=== PATIENT | male | born 1960 | race Caucasian/White ===

== ENCOUNTER 2022-06-03 10:15 | Observation (INO) | payer BC ==
[2022-06-03] MEDS ORDERED: Sodium Chloride 0.9% 500 ML 500 ML IV ONE ×2 (10:39→10:47)
[2022-06-03] MEDS ORDERED: MORPHINE SULFATE 4 MG INJ ONE (10:39)
[2022-06-03] MEDS ORDERED: Zofran 4 MG/2 ML VIAL ONE (10:39)
[2022-06-03] MEDS ORDERED: MORPHINE SULFATE 4 MG INJ IV ONE (10:45)
[2022-06-03] MEDS ORDERED: Zofran 4 MG/2 ML VIAL IV ONE (10:47)
[2022-06-03] MEDS ORDERED: Hydromorphone 1 mg/ml Injection IV ONE (12:12)
[2022-06-03] MEDS ORDERED: Sodium Chloride 0.9% 1000 ML 1,000 ML IV SCH (12:15)
[2022-06-03] MEDS ORDERED: Hydromorphone 1 mg/ml Injection ONE (12:36)
[2022-06-03] MEDS ORDERED: Sodium Chloride 0.9% 1000 ML 1,000 ML ONE (12:36)
[2022-06-03 12:49] LABS: ALBUMIN 4.7 g/dL (3.5-5.0); ALKALINE PHOSPHATASE 94 U/L (38-126); ANION GAP 10.7 MEQ/L (5-15); BLOOD UREA NITROGEN 22 mg/dL (9-20); CHLORIDE 105 mmol/L (98-107); Calcium 9.3 mg/dL (8.4-10.2); Carbon Dioxide 24 mmol/L (22-30); Creatinine 1 0.79 mg/dL (0.66-1.25); EST GLOMERULAR FILTRATION RATE > 60.0 ML/MIN; Glucose 96 mg/dL (74-106); SGOT/AST 43 U/L (17-59); SGPT/ALT 66 U/L (0-50); SODIUM 136 mmol/L (137-145); Total Protein 7.6 g/dL (6.3-8.2)
--- NOTE | 2022-06-03 13:29 | ERPHSYRPT ---
- History of Present Illness Time Seen by Provider: 06/03/22 10:31 Historian: patient, family Exam Limitations: no limitations Patient Subjective Stated Complaint: Pt c/o of upper abdominal pain Triage Nursing Assessment: Pt brought to the ER by his , bradycardic, hypertensive, rates abdominal pain as 01/04, hx of pancreatitis, pt went to [facility] this morning and had blood work done and was told that he had pancreatitis and was told to come over to the ER, they did give him a GI cocktail while he was there, pt used to be a heavy drinker but he has cut done but has not quit, skin n/w/d, pulses normal, denies N&V at this time but just has pain Physician History: 61 years old with history of hypertension, hyperlipidemia, regular alcohol use presented to the ER with chief complaint of upper abdominal pain since yesterday. Patient is sent in from [facility] with elevated lipase and amylase. Patient reports moderate to severe sharp pain in the upper abdomen across with some radiation to the back with associated nausea but no vomiting. No significant aggravating or relieving factors for pain. Does have history of pancreatitis in the past. Timing/Duration: yesterday, gradual onset, worse Activities at Onset: rest Quality: sharpness Abdominal Pain Onset Location: RUQ, LUQ, epigastric Severity of Pain-Max: severe Severity of Pain-Current: moderate Modifying Factors: Improves With: nothing Associated Symptoms: nausea Previous symptoms: same symptoms as today Allergies/Adverse Reactions: No Known Drug Allergies Allergy (Verified 06/03/22 10:31) Home Medications: Aspirin 1 tab PO DAILY 02/05/14 [History] Cetirizine HCl [Zyrtec] 5 mg PO DAILY 02/05/14 [History] Fenofibrate,Micronized 145 mg* [Tricor 145 MG] 1 tab PO DAILY 02/05/14 [History] Sertraline HCl 50 mg [Zoloft 50 mg Tablet] 50 mg PO DAILY 02/05/14 [History] guaiFENesin [Mucinex] 600 mg PO DAILY 02/05/14 [History] Celecoxib 100 mg [celeBREX 100 MG] 200 mg PO DAILY 06/03/22 [History] Fluticasone Propionate [Flonase NASAL] 2 spray NS DAILY 06/03/22 [History] Hx Tetanus, Diphtheria Vaccination/Date Given: No (UNKNOWN) Hx Influenza Vaccination/Date Given: Yes (2012) Hx Pneumococcal Vaccination/Date Given: No Travel Risk - International Travel Have you traveled outside of the country in past 3 weeks: No - Coronavirus Screening Are you exhibiting any of the following symptoms?: No Close contact with a COVID-19 positive Pt in past 14-21 Days: No - Vaccine Status Have you recieved a Covid-19 vaccination: Yes [employer]: Belly - Vaccination Dates Date of 2cond Vaccination (if applicable): 2020 - Review of Systems Constitutional: No Symptoms Eyes: No Symptoms Ears, Nose, & Throat: No Symptoms Respiratory: No Symptoms Cardiac: No Symptoms Abdominal/Gastrointestinal: Abdominal Pain, Nausea Genitourinary Symptoms: No Symptoms Musculoskeletal: No Symptoms Skin: No Symptoms Neurological: No Symptoms Psychological: No Symptoms Endocrine: No Symptoms Hematologic/Lymphatic: No Symptoms Immunological/Allergic: No Symptoms - Past Medical History Pertinent Past Medical History: Yes Neurological History: No Pertinent History ENT History: No Pertinent History Cardiac History: High Cholesterol Respiratory History: No Pertinent History Endocrine Medical History: No Pertinent History Musculoskeletal History: Arthritis GI Medical History: Pancreatitis History: No Pertinent History Psycho-Social History: Depression Male Reproductive Disorders: No Pertinent History Other Medical History: INCREASED TRYGLYCERIDES. NO FLARE UP ON PANCREATITIS IN 6 YRS - Past Surgical History Past Surgical History: No Neuro Surgical History: No Pertinent History Cardiac: No Pertinent History Respiratory: No Pertinent History Gastrointestinal: No Pertinent History Genitourinary: No Pertinent History Musculoskeletal: No Pertinent History Male Surgical History: No Pertinent History - Social History Smoking Status: Current every day smoker How long have you smoked: 20 Exposure to second hand smoke: Yes Drug Use: none Patient Lives Alone: No - Nursing Vital Signs Nursing Vital Signs: Initial Vital Signs Temperature 97.4 F 06/03/22 10:20 Pulse Rate 53 L 06/03/22 10:20 Blood Pressure 144/72 06/03/22 10:20 O2 Sat by Pulse Oximetry 95 06/03/22 10:20 Pain Scale Pain Intensity 3 - Physical Exam General Appearance: no apparent distress, alert Eye Exam: PERRL/EOMI, eyes nml inspection Ears, Nose, Throat Exam: normal ENT inspection, TMs normal, pharynx normal Neck Exam: normal inspection, non-tender, supple, full range of motion Respiratory Exam: normal breath sounds, lungs clear Cardiovascular Exam: normal heart sounds, bradycardia Back Exam: normal inspection, normal range of motion Extremity Exam: normal inspection, normal range of motion Neurologic Exam: alert, oriented x 3, cooperative Skin Exam: normal color SpO2 Interpretation: normal SpO2: 91 O2 Delivery: Room Air Ordered Tests: Active Orders 24 hr Category Date Time Status ABDOMEN AND PELVIS W/0 CONTRAS [CT] Stat Exams 06/03/22 10:43 Taken CMP Stat Lab 06/03/22 12:37 Completed TROPONIN Q4H Lab 06/03/22 12:37 Completed TROPONIN Q4H Lab 06/03/22 16:15 Ordered TROPONIN Q4H Lab 06/03/22 20:15 Ordered UA W/RFX UR CULTURE Stat Lab 06/03/22 12:13 Ordered Medication Summary Generic Name Dose Route Start Last Admin Trade Name Freq PRN Reason Stop Dose Admin Sodium Chloride 1,000 mls @ 125 mls/hr 06/03/22 12:15 06/03/22 12:38 Sodium Chloride 0.9% 1000 Ml IV 07/03/22 12:14 125 mls/hr .Q8H BALTAZAR Administration Discontinued Medications Generic Name Dose Route Start Last Admin Trade Name Freq PRN Reason Stop Dose Admin Hydromorphone HCl 1 mg 06/03/22 12:12 06/03/22 12:40 Hydromorphone 1 Mg/1ml Inj 1 Mg/Ml Syringe IV 06/03/22 12:13 1 mg STAT ONE Administration Hydromorphone HCl Confirm 06/03/22 12:36 Hydromorphone 1 Mg/1ml Inj 1 Mg/Ml Syringe Administered 06/03/22 12:37 Dose 1 mg .ROUTE .STK-MED ONE Sodium Chloride Confirm 06/03/22 10:39 Sodium Chloride 0.9% 500 Ml Administered 06/03/22 10:40 Dose 500 mls @ ud IV .STK-MED ONE Sodium Chloride 500 mls @ 500 mls/hr 06/03/22 10:47 06/03/22 12:24 Sodium Chloride 0.9% 500 Ml IV 06/03/22 11:46 Infused .Q1H ONE Infusion Morphine Sulfate Confirm 06/03/22 10:39 Morphine Sulfate 4 Mg/Ml Injection Administered 06/03/22 10:40 Dose 4 mg .ROUTE .STK-MED ONE Morphine Sulfate 4 mg 06/03/22 10:45 06/03/22 12:25 Morphine Sulfate 4 Mg/Ml Injection IV 06/03/22 10:46 4 mg STAT ONE Administration Ondansetron HCl Confirm 06/03/22 10:39 Ondansetron Hcl 4 Mg/2 Ml Vial Administered 06/03/22 10:40 Dose 4 mg .ROUTE .STK-MED ONE Ondansetron HCl 4 mg 06/03/22 10:47 06/03/22 10:49 Ondansetron Hcl 4 Mg/2 Ml Vial IV 06/03/22 10:48 4 mg STAT ONE Administration Lab/Rad Data: Laboratory Result Diagrams 06/03/22 12:37 Laboratory Results 06/03/22 06/03/22 Range/Units 12:37 12:37 Sodium 136 L (137-145) mmol/L Potassium 4.0 (3.5-5.1) mmol/L Chloride 105 (98-107) mmol/L Carbon Dioxide 24 (22-30) mmol/L Anion Gap 10.7 (5-15) MEQ/L BUN 22 H (9-20) mg/dL Creatinine 0.79 (0.66-1.25) mg/dL Estimated GFR > 60.0 ML/MIN Glucose 96 (74-106) mg/dL Calcium 9.3 (8.4-10.2) mg/dL Total Bilirubin 0.70 (0.2-1.3) mg/dL AST 43 (17-59) U/L ALT 66 H (0-50) U/L Alkaline Phosphatase 94 (38-126) U/L Troponin I < 0.012 (0.000-0.034) ng/mL Serum Total Protein 7.6 (6.3-8.2) g/dL Albumin 4.7 (3.5-5.0) g/dL - Progress Progress: improved, pain not gone completely, re-examined Progress Note: 06/03/22 13:31 60 years old is evaluated for upper abdominal pain since yesterday with associated nausea. Pain is moderate to severe sharp with some radiation to the back. History of pancreatitis long time ago. Patient was a heavy drinker previously and no drinks off and on but not heavy. Patient is pretty tender on exam in the upper abdomen, given symptomatic treatment with morphine and Dilaudid, on reevaluation feeling better. Patient has work-up done at urgent care with white count of 11, lipase in 800s, normal liver enzymes. Has negative troponins. No chest pain palpitations or shortness of breath. CT abdomen pelvis showed mild acute pancreatitis without any necrosis or any other acute intra-abdominal/pelvic findings. I have discussed with patient about conservative management of pancreatitis with bowel rest, fluids and pain medication in the hospital versus going home on oral pain medication and clear liquid and he does not feel comfortable going home. Discussed with Dr. Espinosa and patient is admitted. Discussed with : Teo Will see patient in: hospital (observation) Counseled pt/family regarding: lab results, diagnosis, need for follow-up, rad results - Departure Departure Disposition: Observation Clinical Impression: Acute pancreatitis Condition: Stable Critical Care Time: No Referrals: LATOYA PARKS MD [Primary Care Provider] - Follow up/PCP as directed
[2022-06-03 13:39] LABS: INFLUENZA A NEGATIVE (NEGATIVE); INFLUENZA B NEGATIVE (NEGATIVE); RESPIRATORY SYNCTIAL VIRUS NEGATIVE (Negative); SARS-CoV-2 Xpert Express NEGATIVE (NEGATIVE)
[2022-06-03] MEDS ORDERED: DUONEB 0.5-3 MG/3 ml Neb IH PRN (15:17)
[2022-06-03] MEDS: Hydromorphone 1 mg/ml Injection IV PRN ×2 (16:29→20:45)
[2022-06-03 16:45] LABS: Appearance Clear (Clear); Bacteria None Seen /HPF (None Seen); Bilirubin Negative (Negative); Blood Negative (Negative); Epithelial Cells None Seen /HPF (None Seen); Glucose Negative (Negative); Hyaline Casts 0-2 /LPF (0-2); Ketones Negative (Negative); Leukocyte Esterase Negative (Negative); Nitrite Negative (Negative); Protein,Urine Dip Negative (Negative); RBC 0-2 /HPF (0-5); WBC 0-2 /HPF (0-5)
[2022-06-03 16:49] LABS: ADD URINE CULTURE? NO (NO)
--- NOTE | 2022-06-03 18:01 | XRAY ---
Indication: Abdomen pain. Elevated amylase/lipase. Pancreatitis. Multiple contiguous axial images obtained through the abdomen and pelvis without contrast. Comparison: None Lung bases demonstrates mild bibasilar subsegmental atelectasis/scarring. No infiltrate or effusion. Heart not enlarged. Noncontrasted stomach and bowel loops appear nonobstructed with normal appendix. Small descending duodenal diverticulum. Mild sigmoid diverticulosis without diverticulitis. Head of pancreas demonstrates mild edema with peripancreatic stranding favoring acute pancreatitis with tiny free fluid. No walled off fluid collection or free air. Diffuse fatty liver. Remaining liver, gallbladder, spleen, adrenal glands, kidneys, ureters, and bladder appear unremarkable for noncontrast exam. Minimal aortoiliac calcifications without AAA. Osseous structures intact with mild degenerative changes throughout the spine. Impression: 1. CT findings favor mild pancreatitis. 2. Incidental duodenal diverticulum, sigmoid diverticulosis, fatty liver, arteriosclerotic disease, and degenerative spondylosis. Comment: Preliminary interpretation made by [facility]. No critical discrepancy.
[2022-06-03] MEDS: Mucinex 600MG ER Tabs PO SCH (20:45)
[2022-06-03] MEDS: Flonase NASAL NS SCH (20:45)
[2022-06-03] MEDS: Sodium Chloride 0.9% 1000 ML 1,000 ML IV SCH (20:46)
[2022-06-04] MEDS: Hydromorphone 1 mg/ml Injection IV PRN ×3 (00:46→09:44)
[2022-06-04] MEDS: Sodium Chloride 0.9% 1000 ML 1,000 ML IV SCH ×4 (04:48→21:16)
[2022-06-04 06:27] LABS: Hemoglobin 14.2 g/dL (12.5-18.0); Mean Cell Volume 89.2 fL (78-100); Mean Corpuscular Hemoglobin 29.5 pg (26-32); Mean Platelet Volume 9.9 fL (7.5-11.0); Platelet Count 320 x10^3/uL (150-450); Red Blood Count 4.82 x10^6/uL (4.1-5.6); Red Cell Distribution Width 13.2 % (11.5-14.0); White Blood Count 12.6 x10^3/uL (4.0-10.5)
[2022-06-04 06:57] LABS: ALBUMIN 3.8 g/dL (3.5-5.0); ALKALINE PHOSPHATASE 70 U/L (38-126); ANION GAP 9.5 MEQ/L (5-15); BLOOD UREA NITROGEN 16 mg/dL (9-20); CHLORIDE 105 mmol/L (98-107); Calcium 8.3 mg/dL (8.4-10.2); Carbon Dioxide 25 mmol/L (22-30); Creatinine 1 0.75 mg/dL (0.66-1.25); EST GLOMERULAR FILTRATION RATE > 60.0 ML/MIN; Glucose 95 mg/dL (74-106); LIPASE 134 U/L (23-300); Potassium 3.7 mmol/L (3.5-5.1); SGOT/AST 33 U/L (17-59); SGPT/ALT 49 U/L (0-50); SODIUM 135 mmol/L (137-145); Total Protein 6.4 g/dL (6.3-8.2)
[2022-06-04] MEDS: PROTONIX 40 MG IV IV SCH (09:44)
[2022-06-04] MEDS ORDERED: Tricor 145 MG PO SCH (11:00)
[2022-06-04] MEDS ORDERED: HYDROCODONE-ACETAMIN 10-325 MG PO PRN (11:19)
[2022-06-04] MEDS ORDERED: Nicoderm CQ 21 MG TOP ONE (11:21)
[2022-06-04] MEDS: celeBREX 100 MG PO SCH (12:07)
[2022-06-04] MEDS: Ecotrin 325 MG PO SCH (12:07)
[2022-06-04] MEDS: CLARITIN 10 MG PO SCH (12:07)
[2022-06-04] MEDS: Mucinex 600MG ER Tabs PO SCH (21:18)
[2022-06-04] MEDS: Flonase NASAL NS SCH (21:18)
[2022-06-04] MEDS ORDERED: ZOLOFT 50 MG TABLET PO SCH (22:00)
[2022-06-05 05:32] LABS: Hematocrit 43.2 % (42-50); Hemoglobin 14.3 g/dL (12.5-18.0); Mean Corpuscular Hemoglobin 29.1 pg (26-32); Mean Corpuscular Hgb Concent. 33.1 g/dL (32-36); Mean Platelet Volume 9.8 fL (7.5-11.0); Platelet Count 299 x10^3/uL (150-450); Red Blood Count 4.91 x10^6/uL (4.1-5.6); Red Cell Distribution Width 13.1 % (11.5-14.0); White Blood Count 10.2 x10^3/uL (4.0-10.5)
[2022-06-05 06:05] LABS: ALBUMIN 3.8 g/dL (3.5-5.0); ALKALINE PHOSPHATASE 69 U/L (38-126); ANION GAP 9.3 MEQ/L (5-15); BLOOD UREA NITROGEN 12 mg/dL (9-20); CHLORIDE 107 mmol/L (98-107); Calcium 8.7 mg/dL (8.4-10.2); Carbon Dioxide 25 mmol/L (22-30); Creatinine 1 0.69 mg/dL (0.66-1.25); EST GLOMERULAR FILTRATION RATE > 60.0 ML/MIN; Glucose 95 mg/dL (74-106); LIPASE 67 U/L (23-300); Potassium 3.9 mmol/L (3.5-5.1); SGOT/AST 36 U/L (17-59); SGPT/ALT 42 U/L (0-50); SODIUM 137 mmol/L (137-145); Total Protein 6.6 g/dL (6.3-8.2)
[2022-06-05] MEDS: Ecotrin 325 MG PO SCH (10:00)
[2022-06-05] MEDS ORDERED: CETIRIZINE HCL 5 MG PO SCH (10:00)
[2022-06-05] MEDS: celeBREX 100 MG PO SCH (10:00)
[2022-06-05] MEDS ORDERED: NON-FORMULARY ITEM (Aspirin [Aspirin] 325 MG Tablet) PO SCH (10:00)
[2022-06-05] MEDS: CLARITIN 10 MG PO SCH (10:00)
--- NOTE | 2022-06-05 11:02 | XRAY ---
Indication: Abdominal pain. Two-dimensional gallbladder sonogram performed. Comparison: None Visualized gallbladder normally distended with minimal sludge in the dependent portion. No gallstones, abnormal wall thickening, or pericholecystic fluid. Common bile duct measures 5.3 mm. No intrahepatic biliary distention. Visualized liver demonstrates diffuse fatty echogenicity with small focus of fatty sparing adjacent to the gallbladder. No hepatomegaly or ascites. Remaining visualized pancreas and right kidney are sonographically unremarkable. Right kidney measures 14.2 cm in length. Impression: Gallbladder sludge. Negative for cholelithiasis/cholecystitis. Fatty liver.
[2022-06-05 12:05] VITALS: BP 139/82; PULSE 56; O2SAT 94
--- NOTE | 2022-06-05 13:23 | PCM.DCORD ---
- Discharge Disposition: Home, Self-Care Condition: Stable Prescriptions: No Action Sertraline HCl 50 mg [Zoloft 50 mg Tablet] 50 mg PO UD Fenofibrate,Micronized 145 mg* [Tricor 145 MG] 1 tab PO UD guaiFENesin [Mucinex] 600 mg PO HS Cetirizine HCl [Zyrtec] 5 mg PO DAILY Aspirin 325 mg PO DAILY Celecoxib 100 mg [celeBREX 100 MG] 200 mg PO DAILY Fluticasone Propionate [Flonase NASAL] 2 spray NS HS Additional Instructions: general surgery consult re GB sludge and Hx pancreatitis Follow up with: LATOYA PARKS MD [Primary Care Provider] - 06/14/22 2:45 pm
[2022-06-05] MEDS: PROTONIX 40 MG IV IV SCH (13:44)
== END 2022-06-05 12:46 | disposition home or self-care (01) ==
LOC: ED 10:15 → MED SURG 15:12
PROVIDERS: ADMIT Family Medicine; ATTEND Family Medicine
DX: K85.90 Acute pancreatitis without necrosis or infection, unspecified (principal); R00.1 Bradycardia, unspecified; I10 Essential (primary) hypertension; E78.5 Hyperlipidemia, unspecified; Z79.899 Other long term (current) drug therapy; Z20.828 Contact with and (suspected) exposure to other viral communicable diseases; Z72.0 Tobacco use
CPT/HCPCS: 0241U; 36415; 74176; 76705; 80053; 81001; 83690; 84484; 85027; 96374; 96375; 96376; 99284; G0378; J1170; J2270; J2405; A9270-GY